=== PATIENT | female | born 1980 | race American Indian/Alaskan Native ===

== ENCOUNTER 2016-08-27 19:04 | Inpatient (IN) | payer OTHER, SELFPAY ==
[2016-08-27] MEDS ORDERED: CATAPRES PO ONE (19:41)
[2016-08-27] MEDS ORDERED: MORPHINE IV ONE (19:49)
[2016-08-27] MEDS ORDERED: MORPHINE ONE (19:49)
[2016-08-27] MEDS ORDERED: ZOFRAN IV ONE (19:49)
[2016-08-27] MEDS ORDERED: NITRO-BID 2% TP ONE (19:49)
--- NOTE | 2016-08-27 19:59 | Emergency Department Report ---
HPI - General Chief Complaint: Chest Pain Time Seen by Provider: 08/27/16 19:39 - HPI HPI: Room 18 Patient is a 36-year-old female presenting with a chief complaint of chest pain. The patient states her symptoms began yesterday with substernal chest pain described as squeezing in nature. Patient states the pain has been intermittent and associated with shortness of breath and diaphoresis. Patient denies nausea or vomiting. The patient states she has not had any of her blood pressure medication in one year. The patient currently gives her chest pain a score of 2/10. The patient states she's never had a stress test or cardiac catheterization. Patient received aspirin 324 mg from EMS prior to arrival Location: Chest Duration: intermittent since yesterday Quality: Squeezing Severity: 2/10 Modifying factors: [see above] Context: [see above] Mode of transportation: EMS ED Past Medical Hx - Past Medical History Previous Medical History?: Yes Hx Hypertension: Yes - Surgical History Past Surgical History?: Yes Additional Surgical History: x 2 - Family History Family history: no significant - Social History Smoking Status: Current Every Day Smoker (1/2 pack per day) Substance Use Type: Alcohol (occasional), Marijuana - Medications Home Medications: Home Medications Medication Instructions Recorded Confirmed Last Taken Type No Known Home Medications [No 08/27/16 08/27/16 Unknown History Reported Home Medications] ED Review of Systems ROS: Stated complaint: CHEST PAIN Other details as noted in HPI Comment: All other systems reviewed and negative Constitutional: diaphoresis Eyes: denies: eye pain, eye discharge, vision change ENT: denies: ear pain, throat pain Respiratory: shortness of breath Cardiovascular: chest pain Endocrine: no symptoms reported Gastrointestinal: denies: nausea, vomiting Genitourinary: denies: urgency, dysuria, discharge Musculoskeletal: denies: back pain, joint swelling, arthralgia Skin: denies: rash, lesions Neurological: denies: weakness, paresthesias Psychiatric: denies: anxiety, depression Hematological/Lymphatic: denies: easy bleeding, easy bruising Physical Exam - Physical Exam Vital Signs: Vital Signs 08/27/16 08/27/16 08/27/16 19:28 19:34 19:51 Temperature 98.7 F Pulse Rate 66 Respiratory 22 22 Rate Blood Pressure 199/121 199/121 Blood Pressure 199/121 [Right] O2 Sat by Pulse 100 Oximetry Physical Exam: GENERAL: The patient is well-developed well-nourished female lying on stretcher appearing to be in mild discomfort. [] HEENT: Normocephalic. Atraumatic. Extraocular motions are intact. Patient has moist mucous membranes. NECK: Supple. Trachea midline CHEST/LUNGS: Clear to auscultation. There is no respiratory distress noted. HEART/CARDIOVASCULAR: Regular. There is no tachycardia. There is no gallop rub or murmur. ABDOMEN: Abdomen is soft, nontender. Patient has normal bowel sounds. There is no abdominal distention. SKIN: There is no rash. There is no edema. There is no diaphoresis. NEURO: The patient is awake, alert, and oriented. The patient is cooperative. The patient has normal speech MUSCULOSKELETAL: There is no evidence of acute injury. ED Course Vital Signs 08/27/16 08/27/16 08/27/16 19:28 19:34 19:51 Temperature 98.7 F Pulse Rate 66 Respiratory 22 22 Rate Blood Pressure 199/121 199/121 Blood Pressure 199/121 [Right] O2 Sat by Pulse 100 Oximetry - Consultations Consultation #1: 08/27/16 20:38 Cardiology paged 08/27/16 20:[address] Danny abraham with low intensity heparin drip. Recommends improving patient's blood pressure first ED Medical Decision Making - Lab Data Result diagrams: 08/27/16 19:49 08/27/16 19:49 Laboratory Tests 08/27/16 08/27/16 19:49 19:49 WBC 9.6 RBC 4.80 Hgb 14.2 Hct 43.1 H MCV 90 MCH 30 MCHC 33 RDW 14.7 Plt Count 272 Lymph % (Auto) 29.8 [place] % (Auto) 7.0 Eos % (Auto) 1.1 Baso % (Auto) 0.9 Lymph # 2.8 [place] # 0.7 Eos # 0.1 Baso # 0.1 Seg Neutrophils % 61.2 Seg Neutrophils # 5.8 Sodium 139 Potassium 4.9 Chloride 104.6 Carbon Dioxide 22 Anion Gap 17 BUN 11 Creatinine 0.7 Estimated GFR > 60 BUN/Creatinine Ratio 15.71 Glucose 148 H Calcium 9.0 Troponin T 0.050 H - EKG Data -: EKG Interpreted by [place] EKG shows normal: sinus rhythm Rate: normal - EKG Data When compared to previous EKG there are: no significant change Interpretation: unchanged when compared t (10/12/2014) - Radiology Data Radiology results: report reviewed (chest x-ray), image reviewed (chest x-ray) Chest x-ray-no focal infiltrates, no pneumothorax - Differential Diagnosis ACS, GERD, pericarditis, Critical care attestation.: If time is entered above; I have spent that time in minutes in the direct care of this critically ill patient, excluding procedure time. ED Disposition Clinical Impression: Chest pain, Hypertensive urgency, Elevated troponin Disposition: OP ADMITTED IP TO THIS HOSP Is pt being admited?: Yes Does the pt Need Aspirin: Yes Condition: Serious Instructions: Chest Pain (ED) Referrals: PRIMARY CARE,MD [Primary Care Provider] - 3-5 Days Time of Disposition: 20:39 (cardiology and hospitalist paged)
[2016-08-27 20:02] LABS: Basophils % (Auto) 0.9 % (0.0-1.8); Eosinophils % (Auto) 1.1 % (0.0-4.3); Hematocrit 43.1 % (30.3-42.9); Hemoglobin 14.2 gm/dl (10.1-14.3); Mean Corpuscular HGB Conc 33 % (30-34); Mean Corpuscular Hemoglobin 30 pg (28-32); Mean Corpuscular Volume 90 fl (79-97); Platelet Count 272 K/mm3 (140-440); Red Cell Distribution Width 14.7 % (13.2-15.2); White Blood Count 9.6 K/mm3 (4.5-11.0)
--- NOTE | 2016-08-27 20:15 | Admit Criteria Form ---
Admission Criteria Documentation: CHEST PAIN Clinical Indications for Admission to Inpatient Care (Place 'X' for any and all applicable criteria): Admission is indicated for chest pain and ANY ONE of the following(1)(2)(3)(4)(5 ): [ ]I. Angina with acute coronary syndrome (Also use Myocardial Infarction or Angina guideline) [ ]II. Hemodynamic instability [ ]III. Angina needing acute intervention as indicated by ALL of the following( 11)(12): [ ]a) Unstable angina is present as indicated by angina that is ANY ONE of the following: [ ]i) New onset [ ]ii) Nocturnal [ ]iii) Prolonged at rest [ ]iv) Progressive [ ]b) Angina warrants acute intervention as indicated by ANY ONE of the following: [ ]i) Recurrent angina (e.g, not responding as previously to treatment) [ ]ii) Angina at rest or with low-level activities despite initial medical therapy [ ]iii) New or presumably new ST-segment depression on ECG [ ]iv) Signs or symptoms of heart failure (eg, dyspnea, pulmonary edema) [ ]v) New or worsening mitral regurgitation [ ]vi) Hemodynamic instability [ ]vii) Dangerous arrhythmia (eg, sustained ventricular tachycardia) [ ]viii) History of percutaneous coronary intervention within 6 months [ ]ix) History of coronary artery bypass graft surgery [ ]x) MIGEL risk score of 2 or greater[A] [ ]xi) History of Diabetes(14) [ ]xii) High-risk cardiac ischemia findings on noninvasive testing (e.g, echocardiogram, treadmill testing, nuclear scan) [ ]xiii) Chronic renal insufficiency (ie, estimated GFR less than 60 mL/min/1.732m) [ ]xiv) Left ventricular ejection fraction less than 40% [ ]IV. Evidence of GA (eg, cardiac biomarkers positive, ST-segment elevation on ECG) also use Myocardial Infarction Criteria Form. [ ]V. Pulmonary edema [ ]. Respiratory distress [ ]VII. Chest pain indicative of serious diagnosis other than coronary artery disease (eg, aortic dissection) [X ]VIII. Contraindications and/or Inappropriate clinical situations for Observational Care in patients with Chest Pain, when ANY ONE of the following is required: [ ]a) Patient with risk factor for pulmonary embolism, acute coronary syndrome and myocardial infarction (18) [ ]b) Patient with Pulmonary embolism require an average LOS of 4.3 days, therefore emergency department observation management is inappropriate 18,23 [ ]c) Painful condition/s in the elderly, have the highest rate of recidivism after emergency department observation management (10.8%) 20,21,22 [ X]d) Elevated cardiac biomarker requires intensive and exhaustive care (19) [X ]IX. General contraindications and/or Inappropriate clinical situations for Observational Care in patients with Chest Pain, when ANY ONE of the following is required: [X ]a) Prediction of prolongation of LOS based on ANY ONE of the following may be considered as a contraindication for observational care 2, 3, 4, 5, 6, 7, 8, 9, 10, 11 [ ]i) Age > 65 yrs. [X ]ii) Patient arriving by ambulance [ ]iii) Patient with high acuity [ ]iv) Patient requiring vital sign monitoring [ ]v) Patient on IV medication [ X]b) Systolic blood pressures 180mmHg 3,12 [ ]c) Patient with altered mental status including delirium and other alteration of consciousness, (3) [ ]d) Patient whose discharge disposition will be to a penitentiary home or rehabilitation home should not be managed in Emergency Department Observation Unit. CMS rule requires 3 days hospital stay before such placement. 3,13 [ ]e) Patient with failure to thrive due to broad array of etiologies 3,16,17 [ ]f) Inability to ambulate 3,14 Extended stay beyond goal length of stay may be needed for (1)(28): [ ]a) Specific condition diagnosed after evaluation (eg, pulmonary embolism, aortic dissection) [ ]b) Unstable angina [ ]c) Continued suspicion of acute coronary syndrome with inability to complete needed cardiac evaluation (eg, patient clinically unable to undergo stress testing) [ ]d) Myocardial infarction (Contents from ANGINA and CHEST PAIN clinical indications for admission to inpatient care have been integrated in this form) The original [employer] content created by [employer] has been revised. The portions of the content which have been revised are identified through the use of italic text or in bold, and [facility] has neither reviewed nor approved the modified material. All other unmodified content is copyright [employer]. Please see references footnoted in the original [facility] edition 2016 Admission Criteria Met: Yes
[2016-08-27 20:25] LABS: Anion Gap 17 mmol/L; BUN/Creatinine Ratio 15.71; Blood Urea Nitrogen 11 mg/dL (7-17); Carbon Dioxide 22 mmol/L (22-30); Chloride 104.6 mmol/L (98-107); Glucose 148 mg/dL (65-100); Potassium 4.9 mmol/L (3.6-5.0); Sodium 139 mmol/L (137-145)
[2016-08-27 21:24] LABS: Cholesterol 198 mg/dL (50-199); HDL Cholesterol 27 mg/dL (40-59); LDL Cholesterol,Direct 121 mg/dL (50-130); Triglycerides 254 mg/dL (2-149)
[2016-08-27] MEDS: HEPARIN/ 0.45% NACL-25,000 UNIT/500 ML 25,000 UNIT/500 ML BAG IV SCH (22:43)
[2016-08-27 23:07] LABS: Hematocrit 42.6 % (30.3-42.9); Hemoglobin 14.1 gm/dl (10.1-14.3)
[2016-08-27 23:16] LABS: INR 1.1 (0.87-1.13)
[2016-08-27 23:17] LABS: Partial Thromboplastin Time 30.1 Sec. (24.2-36.6)
--- NOTE | 2016-08-28 00:34 | History and Physical Report ---
History of Present Illness Date of examination: 08/27/16 Date of admission: 08/27/16 21:16 Chief complaint: CP History of present illness: Patient is a 36-year-old woman with a history of hypertension and tobacco dependency who presents with cp associated with sob, diaphoresis. The chest pain is located substernal area that started yesterday around 8 AM. The chest pain is intermittent lasting 5 minutes, moderately intense, nonradiating, squeezing type without aggravating or relieving factors. She's been out of her blood pressure medication about one year. She has no primary care doctor. Past History Social history: smoking, full code. denies: alcohol abuse, prescription drug abuse, IV drug use Family history: CAD (father with a heart attack at age 34), diabetes , hypertension Medications and Allergies Allergies Allergy/AdvReac Type Severity Reaction Status Date / Time Penicillins Allergy Unknown Verified 10/11/14 01:42 Home Medications Medication Instructions Recorded Confirmed Last Taken Type No Known Home Medications [No 08/27/16 08/27/16 Unknown History Reported Home Medications] Active Meds: Active Medications Heparin Sodium/Sodium Chloride (Heparin/ 0.45% Nacl-25,000 Unit/500 Ml) 25,000 unit in 500 mls @ 20 mls/hr IV TITRATE LILIA; 1,000 UNITS/HR PRN Reason: Protocol Last Admin: 08/27/16 22:43 Dose: 1,000 units/hr, 20 mls/hr Review of Systems All systems: negative (as HPI and all other ROS reviewed and negative.) Exam - Physical Exam Narrative exam: GEN: WDWN, NAD, AWAKE, ALERT, ORIENTATED 3 HEENT: NCAT, PERRL, EOMI, OP CLEAR NECK: SUPPLE, NO THYROMEGALY, NO JVD, NO LAD CVS: RRR, NORMAL S1S2 LUNGS/CHEST: CTA B, NORMAL CHEST EXPANSION B, GOOD AIR ENTRY B ABD: SOFT NTND, GBS, NO REBOUND OR GUARDING EXT/SKIN: NO SIGNIFICANT EDEMA OR RASH MSK: FROM X 4 EXTREMITIES NEURO: CN 2-12 GROSSLY INTACT, NO FOCAL DEFICITS PSY: CALM - Constitutional Vitals: Temp Pulse Resp BP Pulse Ox 98.1 F 59 L 13 172/104 100 08/27/16 21:56 08/27/16 21:56 08/27/16 21:56 08/27/16 21:56 08/27/16 21:56 Results - Labs CBC & Chem 7: 08/27/16 22:35 08/27/16 19:49 Labs: Abnormal lab results 08/27/16 Range/Units 22:35 Troponin T 0.069 H D (0.00-0.029) ng/mL - Imaging and Cardiology Chest x-ray: image reviewed Assessment and Plan Patient is a 36-year-old woman with a history of hypertension and tobacco dependency who presents with cp associated with sob and diaphoresis. The chest pain is located substernal area that started yesterday around 8 AM. The chest pain is intermittent lasting 5 minutes, moderately intense, nonradiating, squeezing type without aggravating or relieving factors. She's been out of her blood pressure medication about one year. She has no primary care doctor. -Chest pain, NSTEMI: heparin drip, asa, bb, statin, ntg, consulted Cardiology. -Accelerated hypertension: bb and ntg -Tobacco: counseling done less than 10 minutes to stop -Hyperglycemia: check a1c -DVT prophylaxis: on heparin drip
[2016-08-28] MEDS ORDERED: ZOFRAN IV PRN (00:47)
[2016-08-28] MEDS ORDERED: TYLENOL PO PRN (00:47)
[2016-08-28] MEDS: LOPRESSOR PO SCH ×2 (01:19→09:44)
[2016-08-28 05:54] LABS: Creatine Kinase MB 7.4 ng/mL (0.0-4.0)
[2016-08-28] MEDS: HEPARIN/ 0.45% NACL-25,000 UNIT/500 ML 25,000 UNIT/500 ML BAG IV SCH (06:28)
--- NOTE | 2016-08-28 08:29 | XRay Report ---
CHEST ONE VIEW INDICATION: Chest pain for 2 days, worse today. COMPARISON: None similar. FINDINGS: Portable, single, frontal chest radiograph demonstrates normal cardiomediastinal silhouette. Clear lungs. Unremarkable bones. Extrinsic EKG leads. CONCLUSION: No acute disease in the chest. Thank you for the opportunity to participate in this patient's care.
[2016-08-28] MEDS ORDERED: PROTONIX PO SCH (10:00)
[2016-08-28] MEDS ORDERED: HABITROL TD SCH (10:00)
[2016-08-28] MEDS ORDERED: ASPIRIN PO SCH (10:00)
--- NOTE | 2016-08-28 11:35 | Consultation ---
History of Present Illness Consult date: 08/28/16 Consult reason: chest pain History of present illness: Patient is a 36yr old woman that reports a history of Hypertension, noncompliant with medications who presents to this hospital with complaints of chest pain. Patient denies palpitations and shortness of breath. She denies pre- syncope or syncope. Cardiac enzyme measured shows a CK of 137, a CK\MB of 7.4 with relative index 5.4. No acute ischemic changes on her ECG. Patient was admitted for rule out ACS with a stress thallium today. Past History Past Medical History: hypertension Social history: smoking, full code. denies: alcohol abuse, prescription drug abuse, IV drug use Family history: CAD (father with a heart attack at age 34), diabetes , hypertension Medications and Allergies Allergies Allergy/AdvReac Type Severity Reaction Status Date / Time Penicillins Allergy Unknown Verified 10/11/14 01:42 Home Medications Medication Instructions Recorded Confirmed Last Taken Type Nicotine [Habitrol] 21 mg TD QDAY #30 patch 08/28/16 Unknown Rx Active Meds: Active Medications Acetaminophen (Tylenol) 650 mg PO Q6H PRN PRN Reason: Non Cardiac Pain or Temp>100.5 Aspirin (Aspirin) 325 mg PO QDAY [facility] Last Admin: 08/28/16 09:44 Dose: 325 mg Atorvastatin Calcium (Lipitor) 40 mg PO QHS [facility] Metoprolol Tartrate (Lopressor) 50 mg PO BID [facility] Last Admin: 08/28/16 09:44 Dose: 50 mg Nicotine (Habitrol) 21 mg TD QDAY [facility] Last Admin: 08/28/16 09:44 Dose: 21 mg Ondansetron HCl (Zofran) 4 mg IV Q4H PRN PRN Reason: Nausea And Vomiting Pantoprazole Sodium (Protonix) 40 mg PO QDAY [facility] Last Admin: 08/28/16 09:44 Dose: 40 mg Physical Examination Vital Signs Temp Pulse Resp BP Pulse Ox 98.7 F 66 22 199/121 100 08/27/16 19:28 08/27/16 19:28 08/27/16 19:28 08/27/16 19:28 08/27/16 19:28 General appearance: no acute distress HEENT: Positive: PERRL Neck: Positive: trachea midline Cardiac: Positive: Reg Rate and Rhythm Lungs: Positive: Decreased Breath Sounds Neuro: Positive: Grossly Intact Results 08/27/16 22:35 08/27/16 19:49 Cardiac Enzymes 08/28/16 Range/Units 05:01 CK-MB (CK-2) 7.4 H (0.0-4.0) ng/mL Coagulation 08/27/16 Range/Units 22:35 PT 14.1 (12.2-14.9) Sec. INR 1.10 (0.87-1.13) APTT 30.1 (24.2-36.6) Sec. CBC 08/27/16 Range/Units 22:35 Hgb 14.1 (10.1-14.3) gm/dl Hct 42.6 (30.3-42.9) % Plt Count 281 (140-440) K/mm3 Assessment and Plan Chest pain Hypertension Tobacco abuse For thallium stress test today. Results pending.
[2016-08-28] MEDS ORDERED: LEXISCAN IV ONE ×2 (11:43→11:50)
[2016-08-28 14:10] VITALS: BP 153/101
[2016-08-28 14:32] LABS: Creatine Kinase MB 6.8 ng/mL (0.0-4.0)
--- NOTE | 2016-08-29 00:09 | Treadmill Report ---
THALLIUM STRESS TEST LEFT VENTRICLE: Left ventricular chamber size is within normal. Perfusion study demonstrates fairly homogeneous uptake of the tracer in all segments. A small fixed basal anterior defect is likely due to breast attenuation artifact. Gated analysis demonstrates normal left ventricular systolic function, ejection fraction 53%. CONCLUSION: No demonstrable ischemia on thallium perfusion imaging. Negative study. [facility]# [id number] [place]/NTS
== END 2016-08-28 15:00 | disposition left against medical advice (07) | DRG 313 ==
LOC: ED 19:04 → 4A 21:16
PROVIDERS: ADMIT Internal Medicine; ATTEND Internal Medicine
DX: R07.9 Chest pain, unspecified (principal); I16.0 Hypertensive urgency; R74.8 Abnormal levels of other serum enzymes; I10 Essential (primary) hypertension; F17.200 Nicotine dependence, unspecified, uncomplicated; Z83.3 Family history of diabetes mellitus; Z82.49 Family history of ischemic heart disease and other diseases of the circulatory system; Z88.0 Allergy status to penicillin; Z71.6 Tobacco abuse counseling; R73.9 Hyperglycemia, unspecified; Z91.14 Patient's other noncompliance with medication regimen; Z53.21 Procedure and treatment not carried out due to patient leaving prior to being seen by health care provider
CPT/HCPCS: 36415; 71010; 78452; 80048; 80061; 82550; 82553; 83036; 84484; 85014; 85018; 85025; 85049; 85520; 85610; 85730; 93005; 93010; 93017; 96374; 96375; A9502; J1644; J2270; J2405; J2785